=== PATIENT | female | born 1955 | race Caucasian/White ===

== ENCOUNTER 2017-06-11 21:38 | Observation (INO) | payer SELFPAY ==
[~2017-06-11] VITALS: Ht 167.6 cm; Wt 77.9 kg
[~2017-06-11 21:38] MED LIST: AMITRIPTYLINE H10 MG PO; ASPIR 8181 M1 PO; ASPIRIN325 MG PO; ATORVASTATIN CA40 MG PO; Aspirin E.C. PO; BUSPAR15 MG PO; GLYBURIDE5 MG PO; KRILL OIL 1,001 EACH PO; MACROBID100 MG PO; MOTRIN800 MG PO; NAPROSYN500 MG PO; NIACIN PO; NIACIN100 MG PO; NOHOMEMEDS; NORCO 5/3251 TABLET PO; PROMETHAZINE HC25 M1 PO; ST. JOSEPH ASPI81 MG PO; TOPIRAMATE25 MG PO; ZOFRAN4 MG PO
[2017-06-11 23:12] LABS: EOSINOPHIL (%) 1.4 % (0-5); EOSINOPHIL COUNT 0.1 K/uL (0-0.3); HEMATOCRIT 35.6 % (36.0-46.0); IMMATURE GRANULOCYTE (%) 0.2 % (0.0-0.7); INSTRUMENT ABS NEUTROPHIL CT 3.4 K/uL; LYMPHOCYTE COUNT 2.4 K/uL (1.0-2.8); MCH 29.4 PG (29.0-34.0); MCHC 33.1 G/DL (30.0-36.0); MCV 88.8 FL (83-99); MEAN PLAT.VOLUME 10.6 uM^3 (9.5-12.4); MONOCYTE (%) 7.4 % (3-12); MONOCYTE COUNT 0.5 K/uL (0-0.8); NEUTROPHIL (%) 52.7 % (45-76); NEUTROPHIL COUNT 3.4 K/uL (1.8-6.4); PLATELET COUNT 276 K/uL (156-360); RBC DIS.WIDTH-CV 12.6 % (11.8-14.6); RBC DIS.WIDTH-SD 41.4 % (39-53); RED BLOOD COUNT 4.01 M/uL (3.80-5.20); WHITE BLOOD COUNT 6.4 K/uL (4.1-10.2)
[2017-06-11 23:23] LABS: D-DIMER ELISA < 150.00 ng/mLDDU (<230)
[2017-06-11 23:29] LABS: CHLORIDE 107 mEq/L (99-109); MAGNESIUM 2.2 mg/dL (1.3-2.7); POTASSIUM 3.7 mEq/L (3.7-5.4); SODIUM 145 mEq/L (136-147)
[2017-06-11 23:31] LABS: GLUCOSE 159 mg/dL (70-99)
[2017-06-11 23:32] LABS: ANION GAP 12 MEQ/L (2-14)
[2017-06-11 23:33] LABS: TOTAL BILIRUBIN 0.3 mg/dL (0.0-1.0)
[2017-06-11 23:34] LABS: TROP-I INTERPRETATION NEGATIVE; TROPONIN-I 0.01 ng/mL (0.0-0.30)
[2017-06-11 23:35] LABS: ALKALINE PHOSPHATASE 36 IU/L (3-129); GFR ESTIMATE (CALCULATED) > 59 mL/min/
[2017-06-11 23:36] LABS: UREA NITROGEN (BUN) 15 mg/dL (9-23)
[2017-06-11 23:38] LABS: CREATINE KINASE 68 IU/L (1-294); TOTAL CK 68 IU/L (1-294)
[2017-06-11 23:44] LABS: CK-MB 1.3 ng/mL (0.0-4.9)
[2017-06-12 01:36] LABS: TROP-I INTERPRETATION NEGATIVE; TROPONIN-I < 0.01 ng/mL (0.0-0.30)
[2017-06-12] MEDS ORDERED: ASPIR 8181 M1 PO (01:49)
[2017-06-12 03:15] VITALS: BP 97/55
[2017-06-12 06:07] LABS: HDL CHOLESTEROL 38 MG/DL (Desirable>=50); LDL CHOLESTEROL 168 mg/dL (Desirable<100); NON-HDL CHOLESTEROL 186 mg/dL (Desirable<160); TOTAL CHOLESTEROL 224 mg/dL (Desirable<200); TRIGLYCERIDES 90 MG/DL (Normal: <150)
[2017-06-12 06:08] LABS: TROP-I INTERPRETATION NEGATIVE; TROPONIN-I < 0.01 ng/mL (0.0-0.30)
[2017-06-12 07:52] LABS: POINT-OF-CARE METER ID UU14162513
[2017-06-12 08:15] VITALS: BP 91/57
[2017-06-12 11:38] VITALS: BP 117/62
[2017-06-12 12:45] LABS: POINT-OF-CARE METER ID UU14162513
[2017-06-12 13:58] LABS: TROP-I INTERPRETATION NEGATIVE; TROPONIN-I < 0.01 ng/mL (0.0-0.30)
[2017-06-12 15:12] VITALS: BP 119/58
[2017-06-12] MEDS ORDERED: ATORVASTATIN CA80 MG PO (15:51)
[2017-06-12] MEDS ORDERED: PROTONIX40 MG PO (15:52)
[2017-06-12] MEDS ORDERED: MOTRIN600 MG PO (15:55)
== END 2017-06-12 16:28 | disposition home or self-care (01) ==
LOC: EME 21:38 → EDOF 06-12 02:00 → 5WEST 06-12 02:00 → EDOF 06-12 02:00 → ENRESERV 06-12 02:01 → 5WEST 06-12 03:06
PROVIDERS: Emergency Medicine; Hospitalist; Physician Assistant Medical
DX: R07.89 Other chest pain (principal); R00.2 Palpitations; E78.2 Mixed hyperlipidemia; G45.9 Transient cerebral ischemic attack, unspecified; I10 Essential (primary) hypertension; E11.9 Type 2 diabetes mellitus without complications; Z87.891 Personal history of nicotine dependence; Z82.49 Family history of ischemic heart disease and other diseases of the circulatory system; R05 Cough; Z86.19 Personal history of other infectious and parasitic diseases; K21.9 Gastro-esophageal reflux disease without esophagitis; K44.9 Diaphragmatic hernia without obstruction or gangrene; G43.109 Migraine with aura, not intractable, without status migrainosus; F41.9 Anxiety disorder, unspecified; F32.9 Major depressive disorder, single episode, unspecified; Z90.710 Acquired absence of both cervix and uterus; Z82.5 Family history of asthma and other chronic lower respiratory diseases; Z79.82 Long term (current) use of aspirin
CPT/HCPCS: 71010; 71020; 71250; 80053; 80061; 80306 90; 82550; 82553; 82948; 83690; 83735; 84484; 85025; 85379; 93005; 99281; 99285; C9113; G0378; J1644; J1885

== ENCOUNTER 2017-11-06 00:34 | Emergency (ER) | payer SELFPAY ==
[~2017-11-06] VITALS: Ht 167.6 cm; Wt 73.9 kg
[~2017-11-06 00:34] MED LIST changes: +ATORVASTATIN CA80 MG PO; +MOTRIN600 MG PO; +PROTONIX40 MG PO
[2017-11-06 01:14] LABS: HEMATOCRIT 37.3 % (36.0-46.0); HEMOGLOBIN 12.7 G/DL (11.9-15.5); MCH 29.3 PG (29.0-34.0); MCV 86.1 FL (83-99); PLATELET COUNT 290 K/uL (156-360); RBC DIS.WIDTH-CV 12.9 % (11.8-14.6); RBC DIS.WIDTH-SD 40.4 % (39-53); RED BLOOD COUNT 4.33 M/uL (3.80-5.20); WHITE BLOOD COUNT 6.1 K/uL (4.1-10.2)
[2017-11-06 01:24] LABS: CHLORIDE 107 mEq/L (99-109); POTASSIUM 3.9 mEq/L (3.7-5.4); SODIUM 143 mEq/L (136-147)
[2017-11-06 01:26] LABS: GLUCOSE 139 mg/dL (70-99)
[2017-11-06 01:29] LABS: CREATININE 0.8 mg/dL (0.6-1.3); GFR ESTIMATE (CALCULATED) > 59 mL/min/
[2017-11-06 01:30] LABS: UREA NITROGEN (BUN) 16 mg/dL (9-23)
[2017-11-06 01:36] LABS: TROP-I INTERPRETATION NEGATIVE; TROPONIN-I < 0.01 ng/mL (0.0-0.30)
[2017-11-06 02:26] VITALS: BP 163/108
== END 2017-11-06 02:26 | disposition home or self-care (01) ==
LOC: EME 00:34
PROVIDERS: Emergency Medicine Emergency Medical Services
DX: R07.89 Other chest pain (principal); R06.02 Shortness of breath; R11.0 Nausea; M54.6 Pain in thoracic spine; Z87.19 Personal history of other diseases of the digestive system; R94.31 Abnormal electrocardiogram [ECG] [EKG]; Z79.82 Long term (current) use of aspirin; Z87.891 Personal history of nicotine dependence; Z87.42 Personal history of other diseases of the female genital tract; Z87.442 Personal history of urinary calculi; Z86.73 Personal history of transient ischemic attack (TIA), and cerebral infarction without residual deficits; Z90.710 Acquired absence of both cervix and uterus; Z90.49 Acquired absence of other specified parts of digestive tract; Z88.2 Allergy status to sulfonamides; Z88.8 Allergy status to other drugs, medicaments and biological substances
CPT/HCPCS: 71046; 80048; 82948; 84484; 85027; 93005; 99281; 99284

== ENCOUNTER 2017-11-12 12:27 | Inpatient (IN) | payer SELFPAY ==
[~2017-11-12] VITALS: Ht 167.6 cm; Wt 73.7 kg
[2017-11-12 13:12] LABS: HEMOGLOBIN 13.1 G/DL (11.9-15.5); MCH 29.8 PG (29.0-34.0); MCHC 34.5 G/DL (30.0-36.0); MCV 86.4 FL (83-99); PLATELET COUNT 270 K/uL (156-360); RBC DIS.WIDTH-CV 12.6 % (11.8-14.6); RBC DIS.WIDTH-SD 40.1 % (39-53); WHITE BLOOD COUNT 5.2 K/uL (4.1-10.2)
[2017-11-12 13:22] LABS: CHLORIDE 108 mEq/L (99-109); POTASSIUM 4.3 mEq/L (3.7-5.4); SODIUM 144 mEq/L (136-147)
[2017-11-12 13:23] LABS: GLUCOSE 106 mg/dL (70-99)
[2017-11-12 13:27] LABS: CREATININE 0.8 mg/dL (0.6-1.3); GFR ESTIMATE (CALCULATED) > 59 mL/min/
[2017-11-12 13:28] LABS: UREA NITROGEN (BUN) 12 mg/dL (9-23)
[2017-11-12 13:34] LABS: TROP-I INTERPRETATION NEGATIVE; TROPONIN-I < 0.01 ng/mL (0.0-0.30)
[2017-11-12 13:56] LABS: PTT 35.4 SEC (25-37)
[2017-11-12 14:36] LABS: HDL CHOLESTEROL 42 MG/DL (Desirable>=50); LDL CHOLESTEROL 205 mg/dL (Desirable<100); NON-HDL CHOLESTEROL 237 mg/dL (Desirable<160); TOTAL CHOLESTEROL 279 mg/dL (Desirable<200); TRIGLYCERIDES 161 MG/DL (Normal: <150)
[2017-11-12 14:51] LABS: HEMOGLOBIN A1c (GLYCOHEMOGLOB) 6.6 % (Below 5.7)
[2017-11-12 17:57] VITALS: BP 137/74
[2017-11-12 19:27] VITALS: BP 139/77
[2017-11-13] VITALS: BP 107/58
[2017-11-13 04:12] VITALS: BP 110/59
[2017-11-13 08:10] VITALS: BP 109/68
[2017-11-13 12:34] VITALS: BP 130/77
[2017-11-13 12:43] LABS: CHLORIDE 105 MEQ/L (99-109); CREATININE 0.7 MG/DL (0.6-1.3); GFR ESTIMATE (CALCULATED) > 59 mL/min/; GLUCOSE 113 mg/dL (70-99); MAGNESIUM 2.1 mg/dl (1.3-2.7); POTASSIUM 4.3 MEQ/L (3.7-5.4); SODIUM 140 MEQ/L (136-147); UREA NITROGEN (BUN) 14 mg/dL (9-23)
[2017-11-13 12:44] LABS: APPEARANCE CLEAR ((CLEAR)); BILIRUBIN NEGATIVE; BLOOD NEGATIVE; COLOR YELLOW ((YELLOW)); GLUCOSE (STRIP) NEGATIVE; KETONES NEGATIVE; LEUKOCYTES SMALL; NITRITE POSITIVE; PROTEIN (STRIP) NEGATIVE; SPECIFIC GRAVITY 1.006 (1.000-1.030); UROBILINOGEN 0.2 MG/DL (0.2-1.0)
[2017-11-13 12:48] LABS: TROP-I INTERPRETATION NEGATIVE; TROPONIN-I < 0.01 ng/mL (0.0-0.30)
[2017-11-13] MEDS ORDERED: LIPITOR20 MG PO (13:01)
[2017-11-13 13:08] LABS: BACTERIA RARE /HPF; EPITHELIAL CELLS RARE /HPF; MUCUS TRACE /LPF; RED BLOOD CELLS 0-5 /HPF (0-5); UCUL ADDED? YES
[2017-11-13 13:33] LABS: ALBUMIN 4.3 G/DL (3.2-4.8); ALKALINE PHOSPHATASE 29 IU/L (3-129); ALT (GPT) 10 IU/L (3-49); AST (GOT) 12 IU/L (2-34); DIRECT BILIRUBIN 0.1 mg/dL (0.0-0.3); TOTAL BILIRUBIN 0.8 MG/DL (0.0-1.0); TOTAL PROTEIN 6.5 G/DL (6.4-8.3)
[2017-11-13 14:14] LABS: TROP-I INTERPRETATION NEGATIVE; TROPONIN-I < 0.01 ng/mL (0.0-0.30)
[2017-11-13 14:16] LABS: ALKALINE PHOSPHATASE 32 IU/L (3-129); ALT (GPT) 9 IU/L (3-49); AST (GOT) 11 IU/L (2-34); DIRECT BILIRUBIN 0.1 mg/dL (0.0-0.3); TOTAL BILIRUBIN 0.8 MG/DL (0.0-1.0); TOTAL PROTEIN 6.5 G/DL (6.4-8.3)
== END 2017-11-13 16:46 | disposition home or self-care (01) | DRG 103 ==
LOC: EME 12:27 → EDOF 14:53 → ENRESERV 15:06 → 5SOUTH 17:41 → ENPENDDIS 11-13 14:59 → 5SOUTH 11-13 16:46
PROVIDERS: Hospitalist; Physician Assistant
DX: G43.109 Migraine with aura, not intractable, without status migrainosus (principal); R20.2 Paresthesia of skin; R27.0 Ataxia, unspecified; R00.2 Palpitations; N39.0 Urinary tract infection, site not specified; I10 Essential (primary) hypertension; E11.9 Type 2 diabetes mellitus without complications; E78.5 Hyperlipidemia, unspecified; F17.200 Nicotine dependence, unspecified, uncomplicated; K21.9 Gastro-esophageal reflux disease without esophagitis; R29.706 NIHSS score 6; Z79.82 Long term (current) use of aspirin; Z86.73 Personal history of transient ischemic attack (TIA), and cerebral infarction without residual deficits; Z88.2 Allergy status to sulfonamides
CPT/HCPCS: 70450; 70551; 73630; 80048; 80061; 80076; 81003; 82948; 83036; 83735; 84100; 84484; 85027; 85610; 85730; 87077; 87086; 87186; 93005; 93880; 99281; 99284; J1650

== ENCOUNTER 2017-12-01 21:05 | Observation (INO) | payer SELFPAY ==
[~2017-12-01] VITALS: Ht 167.6 cm; Wt 74.0 kg
[~2017-12-01 21:05] MED LIST changes: +LIPITOR20 MG PO
[2017-12-01 21:40] LABS: HEMATOCRIT 35.7 % (36.0-46.0); HEMOGLOBIN 12.2 G/DL (11.9-15.5); MCH 29.5 PG (29.0-34.0); MCHC 34.2 G/DL (30.0-36.0); MCV 86.2 FL (83-99); PLATELET COUNT 305 K/uL (156-360); RBC DIS.WIDTH-CV 12.7 % (11.8-14.6); RBC DIS.WIDTH-SD 39.8 % (39-53); RED BLOOD COUNT 4.14 M/uL (3.80-5.20); WHITE BLOOD COUNT 6.7 K/uL (4.1-10.2)
[2017-12-01 21:51] LABS: CHLORIDE 105 mEq/L (99-109); POTASSIUM 3.9 mEq/L (3.7-5.4); SODIUM 142 mEq/L (136-147)
[2017-12-01 21:53] LABS: GLUCOSE 128 mg/dL (70-99)
[2017-12-01 21:57] LABS: CREATININE 0.8 mg/dL (0.6-1.3); GFR ESTIMATE (CALCULATED) > 59 mL/min/
[2017-12-01 21:58] LABS: UREA NITROGEN (BUN) 11 mg/dL (9-23)
[2017-12-01 22:04] LABS: TROP-I INTERPRETATION NEGATIVE; TROPONIN-I 0.01 ng/mL (0.0-0.30)
[2017-12-01] MEDS ORDERED: LIPITOR20 MG PO (22:52)
[2017-12-01 23:20] LABS: D-DIMER ELISA < 150.00 ng/mLDDU (<230)
[2017-12-02 00:28] VITALS: BP 111/72
[2017-12-02 02:56] LABS: TROP-I INTERPRETATION NEGATIVE; TROPONIN-I < 0.01 ng/mL (0.0-0.30)
[2017-12-02 03:16] LABS: HDL CHOLESTEROL 41 MG/DL (Desirable>=50); LDL CHOLESTEROL 86 mg/dL (Desirable<100); NON-HDL CHOLESTEROL 104 mg/dL (Desirable<160); TOTAL CHOLESTEROL 145 mg/dL (Desirable<200); TRIGLYCERIDES 91 MG/DL (Normal: <150)
[2017-12-02 04:26] VITALS: BP 97/57
[2017-12-02 07:18] LABS: TROP-I INTERPRETATION NEGATIVE; TROPONIN-I < 0.01 ng/mL (0.0-0.30)
[2017-12-02 07:30] VITALS: BP 102/61
[2017-12-02 11:25] VITALS: BP 133/70
== END 2017-12-02 13:56 | disposition home or self-care (01) ==
LOC: EME → EDBD 21:05 → 4SOUTH 22:42 → EDOF 22:42 → ENRESERV 22:44 → 4SOUTH 12-02 00:19
PROVIDERS: Hospitalist
DX: R07.9 Chest pain, unspecified (principal); E78.5 Hyperlipidemia, unspecified; Z87.891 Personal history of nicotine dependence; R00.2 Palpitations; E11.9 Type 2 diabetes mellitus without complications; R94.31 Abnormal electrocardiogram [ECG] [EKG]; Z79.82 Long term (current) use of aspirin; Z88.2 Allergy status to sulfonamides
CPT/HCPCS: 71046; 80048; 80061; 84484; 85027; 85379; 93005; 93306; 99281; 99284; G0378; J1650

== ENCOUNTER 2017-12-16 13:36 | Emergency (ER) | payer OTHER ==
[~2017-12-16] VITALS: Ht 167.6 cm; Wt 72.8 kg
[2017-12-16 14:57] LABS: HEMATOCRIT 38.4 % (36.0-46.0); HEMOGLOBIN 12.9 G/DL (11.9-15.5); MCH 29.2 PG (29.0-34.0); MCHC 33.6 G/DL (30.0-36.0); MCV 86.9 FL (83-99); PLATELET COUNT 332 K/uL (156-360); RBC DIS.WIDTH-CV 12.6 % (11.8-14.6); RBC DIS.WIDTH-SD 39.7 % (39-53); RED BLOOD COUNT 4.42 M/uL (3.80-5.20); WHITE BLOOD COUNT 4.9 K/uL (4.1-10.2)
[2017-12-16 15:06] LABS: CHLORIDE 106 mEq/L (99-109); POTASSIUM 4.3 mEq/L (3.7-5.4); SODIUM 141 mEq/L (136-147)
[2017-12-16 15:08] LABS: GLUCOSE 111 mg/dL (70-99)
[2017-12-16 15:12] LABS: CREATININE 0.8 mg/dL (0.6-1.3); GFR ESTIMATE (CALCULATED) > 59 mL/min/
[2017-12-16 15:13] LABS: UREA NITROGEN (BUN) 9 mg/dL (9-23)
[2017-12-16 15:18] LABS: TROP-I INTERPRETATION NEGATIVE; TROPONIN-I < 0.01 ng/mL (0.0-0.30)
[2017-12-16 18:04] VITALS: BP 122/71
== END 2017-12-16 18:06 | disposition home or self-care (01) ==
LOC: EME 13:36
DX: R07.9 Chest pain, unspecified (principal); K21.9 Gastro-esophageal reflux disease without esophagitis; Z86.73 Personal history of transient ischemic attack (TIA), and cerebral infarction without residual deficits; F32.9 Major depressive disorder, single episode, unspecified; Z88.2 Allergy status to sulfonamides; Z87.891 Personal history of nicotine dependence
CPT/HCPCS: 71046; 80048; 84484; 85027; 93005; 99281; 99284; J2405

== ENCOUNTER 2018-02-14 03:28 | Observation (INO) | payer OTHER ==
[~2018-02-14] VITALS: Ht 177.8 cm; Wt 68.6 kg
[2018-02-14 05:15] LABS: ALBUMIN 3.6 g/dL (3.2-4.8); CHLORIDE 111 mEq/L (99-109); POTASSIUM 3.8 mEq/L (3.7-5.4); SODIUM 142 mEq/L (136-147)
[2018-02-14 05:18] LABS: GLUCOSE 136 mg/dL (70-99); TOTAL PROTEIN 5.4 g/dL (6.4-8.3)
[2018-02-14 05:19] LABS: D-DIMER ELISA < 150.00 ng/mLDDU (<230); TOTAL BILIRUBIN 0.3 mg/dL (0.0-1.0)
[2018-02-14 05:21] LABS: ALKALINE PHOSPHATASE 39 IU/L (3-129); CREATININE 0.8 mg/dL (0.6-1.3); GFR ESTIMATE (CALCULATED) > 59 mL/min/
[2018-02-14 05:22] LABS: TROP-I INTERPRETATION NEGATIVE; TROPONIN-I < 0.01 ng/mL (0.0-0.30); UREA NITROGEN (BUN) 10 mg/dL (9-23)
[2018-02-14 05:23] LABS: AST (GOT) 12 IU/L (2-34)
[2018-02-14 05:24] LABS: ALT (GPT) 12 IU/L (3-49); HEMATOCRIT 32.2 % (36.0-46.0); HEMOGLOBIN 10.8 G/DL (11.9-15.5); MCH 29.3 PG (29.0-34.0); MCHC 33.5 G/DL (30.0-36.0); MCV 87.5 FL (83-99); PLATELET COUNT 314 K/uL (156-360); RBC DIS.WIDTH-CV 13.2 % (11.8-14.6); RBC DIS.WIDTH-SD 42.4 % (39-53); RED BLOOD COUNT 3.68 M/uL (3.80-5.20); WHITE BLOOD COUNT 4.7 K/uL (4.1-10.2)
[2018-02-14 05:25] LABS: LIPASE 36 U/L (1.0-51.0)
[2018-02-14 07:30] LABS: THYROTROPIN (TSH) 3.4 MIU/L (0.4-5.5)
[2018-02-14 09:25] VITALS: BP 114/63
[2018-02-14 11:13] LABS: TROP-I INTERPRETATION NEGATIVE; TROPONIN-I < 0.01 ng/mL (0.0-0.30)
[2018-02-14 12:09] LABS: CREATINE KINASE 32 IU/L (1-294)
[2018-02-14 12:13] VITALS: BP 137/81
[2018-02-14] MEDS ORDERED: METOPROLOL SUCC25 MG PO (15:38)
[2018-02-14 16:20] VITALS: BP 128/73
[2018-02-14 17:25] LABS: TROP-I INTERPRETATION NEGATIVE; TROPONIN-I 0.02 ng/mL (0.0-0.30)
== END 2018-02-14 18:36 | disposition home or self-care (01) ==
LOC: EME → EDBD 03:28 → EDOF 07:24 → ENRESERV 08:21 → 4SOUTH 09:05
PROVIDERS: Emergency Medicine; Family Medicine
DX: R07.9 Chest pain, unspecified (principal); R00.2 Palpitations; E11.9 Type 2 diabetes mellitus without complications; E78.5 Hyperlipidemia, unspecified; Z79.82 Long term (current) use of aspirin; Z87.891 Personal history of nicotine dependence; R03.0 Elevated blood-pressure reading, without diagnosis of hypertension; R11.0 Nausea; Z82.49 Family history of ischemic heart disease and other diseases of the circulatory system; D64.9 Anemia, unspecified; Z88.2 Allergy status to sulfonamides
CPT/HCPCS: 71046; 80053; 82550; 83690; 84443; 84484; 85027; 85379; 93005; 99281; 99284; G0378; J3010; J7030; S0028